=== PATIENT | female | born 1960 | race Caucasian/White ===

== ENCOUNTER → 2018-08-29 | Outpatient (CLI) | payer BC ==
--- NOTE | 2018-08-30 11:19 | CT ---
EXAMINATION TYPE: CT cervical spine wo con DATE OF EXAM: 08/29/2018 COMPARISON: None HISTORY: neck pain, headaches, fusion years ago CT DLP: 605 mGycm Automated exposure control for dose reduction was used. TECHNIQUE: CT scan of the cervical spine is obtained without contrast, axial images are obtained, sagittal and c oronal reformatted images are also reviewed. FINDINGS: Patient status post anterior cervical fusion and discectomy at C4-C6 and there is some artifact due t o patient's hardware. Spondylosis is present at C3-4, C6-7, C7-T1 with associated loss of disc height . Alignment is anatomic, loss of lordosis likely due to postop change. Cervical spine is visualized in its entirety from C1 through upper thoracic levels, demonstrates sati sfactory alignment without evidence of acute fracture or dislocation. Prevertebral soft tissue appea rs within normal limits. The C1-C2 articulation is within normal limits on the coronal images. C2-3: No evident disc herniation, spinal stenosis, or foraminal encroachment. C3-4: Posterior extension of endplate disc complex causes anterior mass effect on the thecal sac. Fol lowing minimal canal narrowing, lateral extension endplate disc complexes results in bilateral forami nal encroachment. Facet arthropathy present on the right C4-5: There is some artifact present. No significant central stenosis. No significant foraminal encro achment. C5-6: Artifact is again present. There is foraminal encroachment present on the left. No significant central stenosis. C6-7: Artifact is again present. Some left-sided foraminal encroachment is suspected greater than rig ht. No significant central stenosis. C7-T1: Unremarkable IMPRESSION: Multilevel foraminal encroachment, postop changes, degenerative disc disease. No obvious disc herniat ion.
== END ==
LOC: RADCTMAIN 15:29
PROVIDERS: ATTEND Orthopaedic Surgery Sports Medicine
DX: M50.10 Cervical disc disorder with radiculopathy, unspecified cervical region (principal)
CPT/HCPCS: 72125

== ENCOUNTER → 2018-09-24 | Outpatient (CLI) | payer BC ==
--- NOTE | 2018-09-24 23:10 | MR ---
EXAMINATION TYPE: MR cervical spine wo con DATE OF EXAM: 09/24/2018 COMPARISON: None HISTORY: Neck pain TECHNIQUE: Multiplanar, multisequence images of the cervical spine were acquired. Cervical vertebra have normal alignment. There is degenerative disc space narrowing from C2 to C7 wit h decreased signal in the disks 2 mild degree. There is multilevel anterior fusion surgery at C4 and C5 and C6. The skull base appears intact. Cervical basilar relationships is normal. Brainstem is inta ct. The cervical spinal cord has normal signal pattern without evidence of edema. There is posterior endplate spur formation at C3-4 with contact with the anterior surface of the spinal cord. The canal measures 8.5 mm. There is minimal posterior disc bulging also at C6-7 C7-T1. The canal measures 7.5 m m. There is no compression fracture. Posterior elements are intact. There is no cervical paraspinal m ass. IMPRESSION: Previous fusion surgery. Spondylotic changes. Posterior endplate spur formation and disc bulging with out significant cervical bony spinal stenosis.
== END | disposition home or self-care (01) ==
LOC: RADMRIMAIN 21:09
PROVIDERS: ATTEND Orthopaedic Surgery Orthopaedic Surgery of the Spine
DX: M50.13 Cervical disc disorder with radiculopathy, cervicothoracic region (principal); M47.22 Other spondylosis with radiculopathy, cervical region; Z98.1 Arthrodesis status
CPT/HCPCS: 72141

== ENCOUNTER → 2019-03-27 | Outpatient (CLI) | payer BC ==
--- NOTE | 2019-03-27 15:44 | US ---
EXAMINATION TYPE: US thyroid st tissue head/neck DATE OF EXAM: 03/27/2019 COMPARISON: CT CLINICAL HISTORY: 58-year-old female E04.1 Thyroid nodule. TECHNIQUE: Multiples sonographic images of the thyroid gland are obtained. FINDINGS: GLAND SIZE: Right Lobe: 4.5 x 1.9 x 1.4 cm Overall Parenchyma: heterogenous Left Lobe: 4.6 x 1.8 x 1.2 cm Overall Parenchyma: heterogeneous Isthmus Thickness: 0.4 cm NODULES RIGHT: # of nodules measured on right: 3 1. 0.9 X 0.5 x 0.3 cm hypoechoic mixed nodule at the upper pole with poorly defined margins. This nodule is wider than tall and shows intranodular vascularity. 2. 0.4 X 0.4 x 0.3 cm hypoechoic mixed nodule at the mid pole with well-defined margins; present wit h microcalcification. This nodule is wider than tall and shows no intranodular vascularity. 3. 0.8 X 0.6 x 0.4 cm hypoechoic mixed nodule at the medial pole with poorly defined margins. This nodule is wider than tall and shows peripheral vascularity. LEFT: # of nodules measured on left: 2 largest of multiple nodules 1. 1.1 X 1.1 x 0.5 cm heterogeneous solid nodule at the mid pole with well-defined margins. This n odule is wider than tall and shows intranodular vascularity. 2. 0.7 X 0.5 x 0.4 cm hypoechoic mixed nodule at the lower pole with well-defined margins. This nod ule is wider than tall and shows no intranodular vascularity. ISTHMUS: # of nodules measured in the isthmus: 1 1. 0.9 X 0.8 x 0.5 cm isoechoic solid nodule at the lower pole with well-defined margins. This nod ule is wider than tall and shows intranodular vascularity. Bilateral neck scanned: no evidence of lymphadenopathy. IMPRESSION: Multinodular thyroid gland with nodules measuring up to 9 mm on the right, 9 mm in the thyroid isthmu s, and 1.1 cm on the left. Consideration may be given to FNA of the largest, solid 1.1 cm nodule.
== END ==
LOC: RADUSWWP 13:35
PROVIDERS: ATTEND Family Medicine
DX: E04.2 Nontoxic multinodular goiter (principal)
CPT/HCPCS: 76536

== ENCOUNTER → 2019-06-17 | Outpatient (CLI) | payer BC ==
--- NOTE | 2019-06-17 11:06 | FL ---
EXAMINATION TYPE: FL barium swallow DATE OF EXAM: 06/17/2019 CLINICAL HISTORY: Dysphagia per water. Patient states feeling of bubbles of her upper esophagus when swallowing since neck revision surgery earlier this year. TECHNIQUE: A double contrast esophagram is performed utilizing air and barium. A total of 31 second s of fluoroscopic time was utilized during procedure. 51 spot images are saved to PACS. COMPARISON: CT cervical spine August 29, 2018 FINDINGS: The esophagus shows some dysmotility when drinking in the prone position. Satisfactory rei lity when drinking upright. No proximal diverticulum. No evidence of fixed hiatal hernia or stricture noted. No significant gastroesophageal reflux was seen during real time performance of this study. T here is redemonstration of anterior fusion plate C4-C6 levels. There are new extensive posterior inte rpedicular rods and screws transfixing upper to mid cervical spine extending into upper thoracic spin e. IMPRESSION: No significant abnormality is seen to account for patient's symptoms of dysphagia.
[2019-06-17 20:38] LABS: Thyroid Peroxidase Antibodies <28.0 U/mL (0.0-60.0)
== END | disposition home or self-care (01) ==
LOC: RADUSWWP 10:00
PROVIDERS: ATTEND Otolaryngology
DX: R13.10 Dysphagia, unspecified (principal); E03.9 Hypothyroidism, unspecified
CPT/HCPCS: 74220; 86376; 86800

== ENCOUNTER → 2020-08-15 | Outpatient (CLI) | payer BC ==
--- NOTE | 2020-08-15 20:28 | US ---
EXAMINATION TYPE: US thyroid st tissue head/neck DATE OF EXAM: 08/15/2020 COMPARISON: 03/27/2019 CLINICAL HISTORY: 60-year-old female E04.1 THYROID NODULE. F/U previous TECHNIQUE: Multiple sonographic images of the thyroid gland are obtained. FINDINGS: GLAND SIZE: Right Lobe: 4.4 x 1.2 x 1.6 cm Overall Parenchyma: heterogenous Left Lobe: 4.5 x .1 x 1.5 cm Overall Parenchyma: heterogeneous Isthmus Thickness: 0.3 cm NODULES RIGHT: # of nodules measured on right: 0 Right lobe heterogeneous LEFT: # of nodules measured on left: 1 1. 1.0 X 0.7 x 0.6 cm isoechoic solid nodule at the mid pole with poorly defined margins;This nodul e is wider than tall and shows intranodular vascularity. Prior size: 1.1 x 1.1 x 0.5 cm ISTHMUS: # of nodules measured in the isthmus: 1 1. 0.9 X 0.7 x 0.4 cm isoechoic solid nodule within the right isthmus with well-defined margins; th is nodule is wider than tall and shows intranodular vascularity. Prior size: 0.9 x 0.8 x 0.5 cm Veneer Manufacturer notes: Bilateral neck scanned, no evidence of lymphadenopathy. Heterogeneous thyroid bila terally, stable nodules. IMPRESSION: 1. A solitary solid nodule within the left lobe measuring 10 x 7 mm (slightly smaller from 11 x 11 mm , previously). 2. A second 9 mm solid nodule in the right thyroid isthmus remains unchanged.
== END | disposition home or self-care (01) ==
LOC: RADUSWWP 16:03
PROVIDERS: ATTEND Otolaryngology
DX: E04.2 Nontoxic multinodular goiter (principal)
CPT/HCPCS: 76536

== ENCOUNTER → 2021-04-28 | Outpatient (CLI) | payer BC, OTHER ==
--- NOTE | 2021-04-28 13:56 | US ---
EXAMINATION TYPE: US kidneys/renal and bladder DATE OF EXAM: 04/28/2021 COMPARISON: NONE CLINICAL HISTORY: R31.9 HEMATURIA. Diabetic. Frequent UTIs. Abnormal labs. EXAM MEASUREMENTS: Right Kidney: 9.0 x 3.6 x 3.4 cm- estimated Left Kidney: 9.2 x 4.2 x 4.5 cm Right Kidney: Inferior pole obscured by bowel gas. Medial anechoic lesion at hilum = 1.1 x 0.7 cm , may be slight prominence of an extrarenal pelvis Left Kidney: No hydronephrosis or masses seen Bladder: Bilateral Jets seen IMPRESSION: No suspicious abnormality renal ultrasound
== END | disposition home or self-care (01) ==
LOC: RADUSWWP 13:08
PROVIDERS: ATTEND Family Medicine
DX: N39.0 Urinary tract infection, site not specified (principal); E11.9 Type 2 diabetes mellitus without complications
CPT/HCPCS: 76770

== ENCOUNTER 2021-07-06 04:02 | Emergency (ER) | payer BC, OTHER ==
[2021-07-06] MEDS ORDERED: SODIUM CHLORIDE 0.9% 50 ML IVPB ONE (05:45)
[2021-07-06] MEDS ORDERED: CASIRIVIMAB (REGN10933) (EUA) 600 MG, IMDEVIMAB (REGN10987) (EUA) 600 MG in SODIUM CHLO... IVPB ONE (06:00)
[2021-07-06 08:07] VITALS: BP 139/87; PULSE 76; RESP 18; TEMP 98.7
--- NOTE | 2021-07-06 08:07 | ED ---
General Adult HPI - General Chief complaint: Upper Respiratory Infection Stated complaint: COVID+, wants antibodies Time Seen by Provider: 07/06/21 04:28 Source: patient Mode of arrival: ambulatory Limitations: no limitations - History of Present Illness Initial comments: This patient is 61-year-old woman who presents with request to have monoclonal antibody treatment for COVID-19. Patient has had 2 days of cough and congestion. Patient had some mild headache, fever Onset/Timin -: days(s) Severity scale (1-10): 0 Consistency: constant Improves with: none Worsens with: none Associated Symptoms: cough, fever/chills, headaches - Related Data Home Medications Medication Instructions Recorded Confirmed Enalapril/Hydrochlorothiazide 1 each PO DAILY 02/07/15 02/07/15 [Vaseretic 5-12.5 mg] Insulin Regular [HumuLIN R] 0 units SQ DIRECTED 02/07/15 02/07/15 Naproxen [Naprosyn] 250 mg PO BID 02/07/15 02/07/15 Allergies Allergy/AdvReac Type Severity Reaction Status Date / Time No Known Allergies Allergy Verified 07/06/21 04:06 Review of Systems ROS Statement: Those systems with pertinent positive or pertinent negative responses have been documented in the HPI. ROS Other: All systems not noted in ROS Statement are negative. Constitutional: Reports: fever. Denies: chills, weakness Respiratory: Reports: cough. Denies: dyspnea, wheezes, hemoptysis Cardiovascular: Denies: chest pain Gastrointestinal: Denies: abdominal pain, vomiting, diarrhea Genitourinary: Denies: dysuria Musculoskeletal: Denies: back pain Skin: Denies: rash Neurological: Reports: headache. Denies: weakness, numbness Past Medical History Past Medical History: Diabetes Mellitus History of Any Multi-Drug Resistant Organisms: None Reported Past Surgical History: Orthopedic Surgery Additional Past Surgical History / Comment(s): neck surgery, left foot Past Psychological History: No Psychological Hx Reported Smoking Status: Never smoker Past Alcohol Use History: Occasional Past Drug Use History: None Reported General Exam Limitations: no limitations General appearance: alert, in no apparent distress Head exam: Present: atraumatic, normocephalic Eye exam: Present: normal appearance. Absent: scleral icterus, conjunctival injection ENT exam: Present: normal oropharynx Neck exam: Present: normal inspection Respiratory exam: Present: normal lung sounds bilaterally. Absent: respiratory distress, wheezes, rales, rhonchi, stridor Cardiovascular Exam: Present: regular rate, normal rhythm, normal heart sounds. Absent: systolic murmur, diastolic murmur, rubs, gallop GI/Abdominal exam: Present: soft. Absent: tenderness Extremities exam: Present: normal inspection, normal capillary refill. Absent: pedal edema, calf tenderness Back exam: Present: normal inspection Neurological exam: Present: alert Skin exam: Present: warm, dry, intact, normal color. Absent: rash Course Vital Signs 07/06/21 07/06/21 07/06/21 04:04 06:00 06:35 Temperature 98.7 F 98.7 F 98.6 F Pulse Rate 92 87 79 Respiratory 18 16 16 Rate Blood Pressure 154/92 141/86 121/70 O2 Sat by Pulse 98 98 98 Oximetry 07/06/21 07/06/21 06:47 08:06 Temperature 98.7 F Pulse Rate 75 76 Respiratory 16 18 Rate Blood Pressure 123/82 139/87 O2 Sat by Pulse 97 96 Oximetry Medical Decision Making - Lab Data Lab Results 07/06/21 Range/Units 04:42 Coronavirus (PCR) Detected A (Not Detectd) Disposition Clinical Impression: COVID-19 Disposition: HOME SELF-CARE Condition: Good Instructions (If sedation given, give patient instructions): Coronavirus Disease 2019 (COVID-19) Is patient prescribed a controlled substance at d/c from ED?: No Referrals: Van Buenrostro MD [Primary Care Provider] - 1-2 days
== END 2021-07-06 08:13 | disposition home or self-care (01) ==
LOC: EC 04:02
DX: U07.1 COVID-19 (principal); E11.9 Type 2 diabetes mellitus without complications; Z79.4 Long term (current) use of insulin
CPT/HCPCS: 99283 ×2; 96365; 87635; M0243; Q0243